=== PATIENT | female | born 1945 | race African-American/Black ===

== ENCOUNTER 2021-04-01 22:33 | Inpatient (IN) | payer BC, MEDICARE, OTHER ==
[~2021-04-01] VITALS: Ht 172.7 cm; Wt 101.6 kg
[2021-04-01] MEDS ORDERED: ATROPINE SULFATE 1MG/10ML SYR IV ONE (23:00)
[2021-04-01] MEDS ORDERED: SODIUM CHLORIDE 0.9% 1,000 ML IV ONE (23:00)
[2021-04-01] MEDS ORDERED: ATROPINE SULFATE 1MG/ML VIAL IV ONE (23:15)
[2021-04-01] MEDS ORDERED: GLUCAGON,HUMAN RECOMBINANT 1MG/VIAL IV ONE (23:15)
[2021-04-01] MEDS ORDERED: CALCIUM GLUCONATE 100MG/ML 10ML VIAL IV ONE (23:15)
[2021-04-01 23:27] LABS: BASOPHILS % 0.9 % (0.0-2.0); EOSINOPHILS % 3.5 % (0.0-5.0); HEMOGLOBIN. 8.7 g/dL (12.0-16.0); LYMPHOCYTES % 36.9 % (20.0-50.0); MEAN CORPUSCULAR HEMOGLOBIN 27.3 pg (28.0-32.0); MEAN CORPUSCULAR VOLUME 84.6 fL (81.0-99.0); MEAN PLATELET VOLUME 8.7 fl (7.4-10.4); NEUTROPHILS % 47.7 % (40.0-76.0); PLATELET 387 x1000/uL (130-400); RED BLOOD CELL COUNT 3.19 mill/uL (4.2-5.4); RED CELL DISTRIBUTION WIDTH 19.5 % (11.6-14.6)
[2021-04-01 23:29] LABS: CHLORIDE 112 mEq/L (98-107)
[2021-04-01 23:31] LABS: INR 1.6; PROTHROMBIN TIME 16.9 sec (9.6-11.0)
[2021-04-02] MEDS ORDERED: ONDANSETRON HCL 4MG/2ML INJ IV ONE (00:30)
[2021-04-02] MEDS ORDERED: SODIUM CHLORIDE 0.9% 500 ML IV ONE (00:30)
[2021-04-02] MEDS ORDERED: CALCIUM GLUCONATE 100MG/ML 10ML VIAL IV ONE (00:30)
[2021-04-02] MEDS ORDERED: MORPHINE SULFATE 4 MG/ML CPJ (NOT FOR IM USE) IV ONE (03:15)
[2021-04-02 07:30] LABS: CLARITY URINE CLEAR (CLEAR); COLOR URINE YELLOW (YELLOW); KETONES URINE NEGATIVE (NEGATIVE); LEUKOCYTE ESTERASE URINE NEGATIVE (NEGATIVE); NITRITE URINE NEGATIVE (NEGATIVE); OCCULT BLOOD URINE 3+ (NEGATIVE); PH URINE 5.5 (4.5-8.0); PROTEIN URINE NEGATIVE (NEGATIVE); SPECIFIC GRAVITY URINE 1.013 (1.005-1.030); UROBILINOGEN URINE 0.2 E.U./dL (0.2-1.0)
[2021-04-02] MEDS ORDERED: MAGNESIUM/ALUMINUM HYDROXIDE/SIMETHICONE 30ML UDC PO PRN (08:00)
[2021-04-02] MEDS ORDERED: DOCUSATE SODIUM 100MG CAPSULE PO PRN (08:00)
[2021-04-02] MEDS ORDERED: SODIUM CHLORIDE 0.9% 1,000 ML IV SCH (08:00)
[2021-04-02] MEDS ORDERED: CLONIDINE 0.1MG TABLET PO PRN (08:00)
[2021-04-02] MEDS ORDERED: ENOXAPARIN 40MG/0.4ML SYR SUBCUT SCH (08:00)
[2021-04-02] MEDS ORDERED: ONDANSETRON HCL 4MG/2ML INJ IV PRN (08:00)
[2021-04-02] MEDS: ASPIRIN 81MG EC TABLET PO SCH (08:32)
[2021-04-02] MEDS: TRAMADOL 50MG TABLET PO PRN ×2 (08:34→18:24)
[2021-04-02] MEDS ORDERED: SENN-22 PO (11:09)
[2021-04-02] MEDS ORDERED: OMEP20TA15 PO (11:09)
[2021-04-02] MEDS ORDERED: CLOP-31 PO (11:09)
[2021-04-02] MEDS ORDERED: METO-385 PO (11:09)
[2021-04-02] MEDS ORDERED: DILT240C94 PO (11:09)
[2021-04-02] MEDS ORDERED: ASPI-1497 PO (11:09)
[2021-04-02] MEDS ORDERED: ALLO100T PO (11:09)
[2021-04-02] MEDS ORDERED: XAR15 MT (11:09)
[2021-04-02] MEDS ORDERED: ATOR40TA70 PO (11:09)
[2021-04-02] MEDS ORDERED: SPIR25TA6 PO (11:09)
[2021-04-02] MEDS ORDERED: FURO20TA4 PO (11:09)
[2021-04-02] MEDS ORDERED: HYDR-4001 PO (11:09)
[2021-04-02] MEDS ORDERED: MULT-1146 PO (11:09)
[2021-04-02 12:00] VITALS: BP 116/71
[2021-04-02 12:08] VITALS: BP 116/71
[2021-04-02] MEDS ORDERED: ASPIRIN 81MG EC TABLET PO SCH (13:15)
[2021-04-02] MEDS: FUROSEMIDE 20MG TABLET PO SCH (14:18)
[2021-04-02] MEDS: ACETAMINOPHEN 325MG TABLET PO PRN (14:18)
[2021-04-02] MEDS: ALLOPURINOL 100 MG TABLET PO SCH (14:18)
[2021-04-02] MEDS: CLOPIDOGREL 75MG TABLET PO SCH (14:18)
[2021-04-02 16:00] VITALS: BP 111/76
[2021-04-02] MEDS: OMEPRAZOLE 20MG CAPSULE EXTENDED RELEASE PO SCH (17:49)
[2021-04-02] MEDS: SENNOSIDES 8.6MG TABLET PO SCH (17:53)
[2021-04-02 19:52] LABS: FERRITIN 28 ng/mL (10-291)
[2021-04-02 20:00] VITALS: BP 113/63
[2021-04-02 20:01] LABS: VITAMIN B12 SERUM > 2000.0 pg/mL (211-911)
[2021-04-02] MEDS: SODIUM CHLORIDE 0.9% 1,000 ML IV SCH (20:31)
[2021-04-02] MEDS: ATORVASTATIN CALCIUM 40MG TABLET PO SCH (20:31)
[2021-04-03] VITALS: BP 124/62
[2021-04-03 04:00] VITALS: BP 106/70
[2021-04-03] MEDS: OMEPRAZOLE 20MG CAPSULE EXTENDED RELEASE PO SCH (05:54)
[2021-04-03 06:51] LABS: BASOPHILS % 0.5 % (0.0-2.0); EOSINOPHILS % 4.8 % (0.0-5.0); HEMATOCRIT. 23.4 % (36.0-48.0); HEMOGLOBIN. 7.5 g/dL (12.0-16.0); LYMPHOCYTES % 27.1 % (20.0-50.0); MEAN CORPUSCULAR HEMOGLOBIN 26.6 pg (28.0-32.0); MEAN CORPUSCULAR VOLUME 83.3 fL (81.0-99.0); MEAN PLATELET VOLUME 8.9 fl (7.4-10.4); MONOCYTES % 14.5 % (2.0-8.0); NEUTROPHILS % 53.1 % (40.0-76.0); PLATELET 340 x1000/uL (130-400); RED BLOOD CELL COUNT 2.81 mill/uL (4.2-5.4); RED CELL DISTRIBUTION WIDTH 19.5 % (11.6-14.6)
[2021-04-03 08:00] VITALS: BP_SYST 103; BP_SYST 116; BP_DIAS 56; BP_DIAS 85
[2021-04-03] MEDS: METOPROLOL TARTRATE 50MG TABLET PO SCH (09:00)
[2021-04-03] MEDS: ALLOPURINOL 100 MG TABLET PO SCH (09:33)
[2021-04-03] MEDS: CLOPIDOGREL 75MG TABLET PO SCH (09:34)
[2021-04-03] MEDS: SENNOSIDES 8.6MG TABLET PO SCH ×2 (09:34→17:41)
[2021-04-03] MEDS: FUROSEMIDE 20MG TABLET PO SCH (09:34)
[2021-04-03] MEDS: SPIRONOLACTONE 25MG TABLET PO SCH (09:35)
[2021-04-03] MEDS: ASPIRIN 81MG EC TABLET PO SCH (09:35)
[2021-04-03] MEDS: TRAMADOL 50MG TABLET PO PRN ×2 (09:36→21:14)
[2021-04-03] MEDS: SODIUM CHLORIDE 0.9% 1,000 ML IV SCH ×2 (09:36→20:33)
[2021-04-03 12:00] VITALS: BP 119/69
[2021-04-03 15:30] LABS: HEMATOCRIT 24.3 % (36.0-48.0)
[2021-04-03 16:00] VITALS: BP 117/79
[2021-04-03] MEDS ORDERED: RIVAROXABAN 15 MG TABLET PO SCH (17:00)
[2021-04-03 19:18] LABS: CLARITY URINE CLEAR (CLEAR); COLOR URINE YELLOW (YELLOW); KETONES URINE NEGATIVE (NEGATIVE); LEUKOCYTE ESTERASE URINE 1+ (NEGATIVE); NITRITE URINE NEGATIVE (NEGATIVE); OCCULT BLOOD URINE 3+ (NEGATIVE); PROTEIN URINE NEGATIVE (NEGATIVE); SPECIFIC GRAVITY URINE 1.008 (1.005-1.030); UROBILINOGEN URINE 0.2 E.U./dL (0.2-1.0)
[2021-04-03 20:00] VITALS: BP 134/79
[2021-04-03] MEDS: ATORVASTATIN CALCIUM 40MG TABLET PO SCH (20:32)
[2021-04-04] VITALS: BP 132/69
[2021-04-04 04:00] VITALS: BP 146/88
[2021-04-04] MEDS: OMEPRAZOLE 20MG CAPSULE EXTENDED RELEASE PO SCH (05:44)
[2021-04-04 08:00] VITALS: BP 122/76
[2021-04-04] MEDS: SENNOSIDES 8.6MG TABLET PO SCH ×3 (09:00→16:54)
[2021-04-04] MEDS: DOCUSATE SODIUM 100MG CAPSULE PO SCH ×3 (09:00→16:54)
[2021-04-04] MEDS: ALLOPURINOL 100 MG TABLET PO SCH (09:15)
[2021-04-04] MEDS: FUROSEMIDE 20MG TABLET PO SCH (09:15)
[2021-04-04] MEDS: SPIRONOLACTONE 25MG TABLET PO SCH (09:16)
[2021-04-04] MEDS: TRAMADOL 50MG TABLET PO PRN (09:16)
[2021-04-04] MEDS: METOPROLOL TARTRATE 50MG TABLET PO SCH (09:16)
[2021-04-04] MEDS: FERROUS SULFATE 325MG TABLET PO SCH ×3 (09:16→16:53)
[2021-04-04 11:59] LABS: BASOPHILS % 0.6 % (0.0-2.0); EOSINOPHILS % 3.7 % (0.0-5.0); HEMATOCRIT. 22.1 % (36.0-48.0); HEMOGLOBIN. 7.3 g/dL (12.0-16.0); LYMPHOCYTES % 21.8 % (20.0-50.0); MEAN CORPUSCULAR HEMOGLOBIN 27.5 pg (28.0-32.0); MEAN CORPUSCULAR VOLUME 82.8 fL (81.0-99.0); MEAN PLATELET VOLUME 8.4 fl (7.4-10.4); MONOCYTES % 14.5 % (2.0-8.0); NEUTROPHILS % 59.4 % (40.0-76.0); PLATELET 321 x1000/uL (130-400); RED BLOOD CELL COUNT 2.67 mill/uL (4.2-5.4); RED CELL DISTRIBUTION WIDTH 19.7 % (11.6-14.6)
[2021-04-04 12:00] VITALS: BP 119/71
[2021-04-04] MEDS: SODIUM CHLORIDE 0.9% 1,000 ML IV SCH (12:00)
[2021-04-04 15:44] VITALS: BP 119/71
[2021-04-04 16:00] VITALS: BP 132/78
[2021-04-04] MEDS: ACETAMINOPHEN 325MG TABLET PO PRN (17:05)
== END 2021-04-04 17:30 | disposition short-term general hospital (02) | DRG 314 ==
LOC: ER 22:33 → ENRESERV 04-02 08:20 → 5WST 04-02 09:03 → UNDODISIN 04-02 13:20 → 5WST 04-02 22:37
PROVIDERS: ADMIT Hospitalist; ATTEND Internal Medicine Pulmonary Disease
DX: I95.9 Hypotension, unspecified (principal); N17.0 Acute kidney failure with tubular necrosis; E44.1 Mild protein-calorie malnutrition; E87.2 Acidosis; J98.11 Atelectasis; R00.1 Bradycardia, unspecified; I73.9 Peripheral vascular disease, unspecified; D63.8 Anemia in other chronic diseases classified elsewhere; Z20.822 Contact with and (suspected) exposure to COVID-19; R26.89 Other abnormalities of gait and mobility; R31.9 Hematuria, unspecified; I11.9 Hypertensive heart disease without heart failure; I87.8 Other specified disorders of veins; Z79.01 Long term (current) use of anticoagulants; Z79.02 Long term (current) use of antithrombotics/antiplatelets; Z79.899 Other long term (current) drug therapy; Z68.34 Body mass index [BMI] 34.0-34.9, adult; Z98.62 Peripheral vascular angioplasty status
CPT/HCPCS: 36415; 71045; 71250; 80048; 80053; 81003; 82270; 82607; 82728; 82746; 82962; 83540; 83550; 83605; 83880; 84443; 84484; 85014; 85018; 85025; 87426; 93005; 93923; 93970; 97022; 97162; 97530; 99291; C1893; J0461; J0610; J1610; J1650; J2270; J2405; J7030; J7040; A4315